=== PATIENT | female | born 2000 | race Caucasian/White ===

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

== ENCOUNTER 2018-02-10 15:03 | Emergency (ER) | payer OTHER | END 2018-02-10 17:18 | disposition home or self-care (01) | LOC: FTE 15:03 | DX: R51 Headache (principal); J45.909 Unspecified asthma, uncomplicated | CPT/HCPCS: 99283 ==